=== PATIENT | female | born 1995 | race Caucasian/White ===

== ENCOUNTER 2024-02-11 06:40 | Inpatient (IN) | payer OTHER ==
[~2024-02-11] VITALS: Ht 165.1 cm; Wt 86.0 kg
[2024-02-11 07:33] LABS: HEMATOCRIT. 42.1 % (36.0-48.0); HEMOGLOBIN. 13.5 g/dL (12.0-16.0); MEAN CORPUSCULAR HEMOGLOBIN 25.4 pg (28.0-32.0); MEAN CORPUSCULAR HGB CONC 32.2 g/dL (31.0-37.0); MEAN PLATELET VOLUME 9.6 fl (7.4-10.4); PLATELET 267 x1000/uL (130-400); RED BLOOD CELL COUNT 5.33 mill/uL (4.2-5.4); RED CELL DISTRIBUTION WIDTH 14.2 % (11.6-14.6); WHITE BLOOD COUNT 11.6 x1000/uL (4.5-11.0)
[2024-02-11 07:37] LABS: DIFFERENTIAL COMMENT 1
[2024-02-11 07:38] LABS: CHLORIDE 109 mEq/L (98-107); SODIUM 140 mEq/L (136-145)
[2024-02-11 07:39] LABS: CALCIUM 9.1 mg/dL (8.7-10.4); CARBON DIOXIDE 22 mEq/L (21-32)
[2024-02-11 07:43] LABS: CREATININE 0.9 mg/dL (0.6-1.0)
[2024-02-11 07:44] LABS: GLUCOSE 105 mg/dL (70-105); UREA NITROGEN BLOOD 13 mg/dL (9-23)
[2024-02-11 07:46] LABS: ALANINE AMINOTRANSFERASE 26 IU/L (10-49); ALBUMIN 4.5 g/dL (3.2-4.8); ASPARTATE AMINOTRANSFERASE 23 IU/L (<34); BILIRUBIN DIRECT 0.2 mg/dL (<=3.0); BILIRUBIN TOTAL 0.8 mg/dL (0.1-1.0); PROTEIN TOTAL 7.2 g/dL (6.0-8.3)
[2024-02-11 07:48] LABS: HCG SCREEN NEGATIVE
[2024-02-11] MEDS: SODIUM CHLORIDE 0.9% 1,000 ML IV ONE ×2 (08:14→10:10)
[2024-02-11] MEDS: ONDANSETRON HCL 4MG/2ML INJ IV STA (08:14)
[2024-02-11] MEDS: ONDANSETRON HCL 4MG/2ML INJ IV ONE (09:00)
[2024-02-11 10:04] LABS: CLARITY URINE CLEAR (CLEAR); COLOR URINE YELLOW (YELLOW); GLUCOSE URINE NEGATIVE (NEGATIVE); KETONES URINE NEGATIVE (NEGATIVE); LEUKOCYTE ESTERASE URINE NEGATIVE (NEGATIVE); NITRITE URINE NEGATIVE (NEGATIVE); OCCULT BLOOD URINE NEGATIVE (NEGATIVE); PROTEIN URINE NEGATIVE (NEGATIVE); SPECIFIC GRAVITY URINE 1.025 (1.005-1.030)
[2024-02-11 10:06] LABS: UCG SCREEN NEGATIVE
[2024-02-11 10:13] LABS: MICROCYTOSIS 1+; PLATELET ESTIMATE NORMAL
[2024-02-11] MEDS: METOCLOPRAMIDE HCL 10MG/2ML VIAL IV ONE (10:30)
[2024-02-11] MEDS ORDERED: MAGNESIUM/ALUMINUM HYDROXIDE/SIMETHICONE 30ML UDC PO PRN (16:00)
[2024-02-11] MEDS ORDERED: IPRATROPIUM/ALBUTEROL 0.5-3(2.5)MG/3ML NEB NEB PRN (16:00)
[2024-02-11] MEDS ORDERED: KETOROLAC 15MG/ML VIAL IV PRN (16:00)
[2024-02-11] MEDS ORDERED: NITROGLYCERIN 0.4MG TABLET SL SL PRN (16:00)
[2024-02-11] MEDS ORDERED: GUAIFENESIN 200MG/10ML SUGAR FREE UDC PO PRN (16:00)
[2024-02-11] MEDS ORDERED: CLONIDINE 0.1MG TABLET PO PRN (16:00)
[2024-02-11] MEDS ORDERED: DOCUSATE SODIUM 100MG CAPSULE PO PRN (16:00)
[2024-02-11] MEDS ORDERED: ACETAMINOPHEN 325MG TABLET PO PRN (16:00)
[2024-02-11 16:44] LABS: IRON 101 ug/dL (50-170)
[2024-02-11 16:46] LABS: TOTAL IRON BINDING CAPACITY 319 ug/dl (250-425)
[2024-02-11 16:49] LABS: T4 FREE 1.31 ng/dL (0.89-1.76); THYROID STIMULATING HORMONE 1.18 uIU/mL (0.55-4.78)
[2024-02-11 16:53] LABS: VITAMIN B12 SERUM 359 pg/mL (211-911)
[2024-02-11] MEDS: DEXT 5%/LACTATED RINGERS 1,000 ML IV SCH (17:04)
[2024-02-11 18:58] LABS: FOLIC ACID (FOLATE) SERUM 13.56 ng/mL (>5.38)
[2024-02-11] MEDS: ONDANSETRON HCL 4MG/2ML INJ IV PRN (19:55)
[2024-02-11] MEDS: ACETAMINOPHEN 325MG TABLET PO PRN (19:55)
[2024-02-11] MEDS: IOHEXOL-300 100 ML BOTTLE ONE (23:15)
[2024-02-12 07:25] LABS: CHLORIDE 108 mEq/L (98-107); POTASSIUM 3.6 mEq/L (3.5-5.1); SODIUM 140 mEq/L (136-145)
[2024-02-12 07:28] LABS: BASOPHILS % 0.3 % (0.0-2.0); CALCIUM 8.4 mg/dL (8.7-10.4); CARBON DIOXIDE 23 mEq/L (21-32); DIFFERENTIAL COMMENT 0; EOSINOPHILS % 1.1 % (0.0-5.0); HEMOGLOBIN. 11.8 g/dL (12.0-16.0); LYMPHOCYTES % 21.2 % (20.0-50.0); MEAN CORPUSCULAR HEMOGLOBIN 25.1 pg (28.0-32.0); MEAN CORPUSCULAR VOLUME 78.5 fL (81.0-99.0); MEAN PLATELET VOLUME 9.4 fl (7.4-10.4); MONOCYTES % 10.6 % (2.0-8.0); NEUTROPHILS % 66.8 % (40.0-76.0); PLATELET 230 x1000/uL (130-400); RED BLOOD CELL COUNT 4.71 mill/uL (4.2-5.4); RED CELL DISTRIBUTION WIDTH 13.7 % (11.6-14.6); WHITE BLOOD COUNT 4.5 x1000/uL (4.5-11.0)
[2024-02-12 07:33] LABS: CREATININE 0.9 mg/dL (0.6-1.0); GLUCOSE 88 mg/dL (70-105); UREA NITROGEN BLOOD 7 mg/dL (9-23)
[2024-02-12 07:34] LABS: ALANINE AMINOTRANSFERASE 20 IU/L (10-49)
[2024-02-12 07:35] LABS: ALBUMIN 3.8 g/dL (3.2-4.8); ASPARTATE AMINOTRANSFERASE 19 IU/L (<34)
[2024-02-12 07:36] LABS: BILIRUBIN TOTAL 0.6 mg/dL (0.1-1.0); PROTEIN TOTAL 5.9 g/dL (6.0-8.3)
[2024-02-12] MEDS: PANTOPRAZOLE SODIUM 40 MG/VIAL IV SCH (09:58)
[2024-02-12 12:00] VITALS: BP 113/65; PULSE 84; RESP 15; TEMP 98.3
== END 2024-02-12 15:20 | disposition home or self-care (01) | DRG 392 ==
LOC: ER 07:22 → 5WST 11:02 → EDBEDREQ 11:52 → EDBEDREQTM 11:52 → EDBEDREQSVC 11:52
PROVIDERS: ADMIT Internal Medicine; ATTEND Internal Medicine
DX: K52.9 Noninfective gastroenteritis and colitis, unspecified (principal); E86.0 Dehydration; J45.909 Unspecified asthma, uncomplicated; Z20.822 Contact with and (suspected) exposure to COVID-19; Z68.31 Body mass index [BMI] 31.0-31.9, adult; E66.9 Obesity, unspecified; Z88.0 Allergy status to penicillin; Z87.09 Personal history of other diseases of the respiratory system
CPT/HCPCS: 36415; 71045; 74177; 80048; 80053; 80076; 81003; 81025; 82607; 82746; 83036; 83540; 83550; 83605; 83735; 84100; 84145; 84439; 84443; 84703; 85025; 85379; 86850; 86900; 87426; 93005; 93970; 99285; J2405; J2470; J2765; J7030; J7121; Q9967